=== PATIENT | female | born 1980 | race African-American/Black ===

== ENCOUNTER 2023-05-14 11:57 | Emergency (ER) | payer OTHER ==
[~2023-05-14] VITALS: Ht 170.2 cm; Wt 60.0 kg
[2023-05-14 12:01] VITALS: BP 136/88; PULSE 90; RESP 18; TEMP 98
[2023-05-14 12:39] LABS: BASOPHILS % 0.8 % (0.0-2.0); EOSINOPHILS % 2.1 % (0.0-5.0); HEMATOCRIT. 30.2 % (36.0-48.0); LYMPHOCYTES % 17.2 % (20.0-50.0); MEAN CORPUSCULAR HEMOGLOBIN 26.2 pg (28.0-32.0); MEAN CORPUSCULAR VOLUME 79.4 fL (81.0-99.0); MEAN PLATELET VOLUME 9.6 fl (7.4-10.4); MONOCYTES % 6.3 % (2.0-8.0); NEUTROPHILS % 73.6 % (40.0-76.0); PLATELET 194 x1000/uL (130-400); RED BLOOD CELL COUNT 3.81 mill/uL (4.2-5.4)
[2023-05-14 12:48] LABS: CHLORIDE 105 mEq/L (98-107)
[2023-05-14 12:54] LABS: HCG SCREEN NEGATIVE
[2023-05-14 12:56] LABS: ETHANOL BLOOD < 10 mg/dL (-10)
[2023-05-14 13:20] LABS: PLATELET ESTIMATE NORMAL
== END 2023-05-14 14:07 | disposition home or self-care (01) ==
LOC: ER 11:57
DX: F15.10 Other stimulant abuse, uncomplicated (principal)
CPT/HCPCS: 80053; 80307; 80329; 80320; 82140; 84703; 85025; 36415; 99283; Z7610 ×4; G0480